=== PATIENT | female | born 1965 | race Caucasian/White ===

== ENCOUNTER 2019-04-03 23:03 | Emergency (ER) | payer OTHER ==
[2019-04-03] MEDS ORDERED: SODIUM CHLORIDE 0.9% 1,000 ML IV STA (23:45)
[2019-04-04 00:46] LABS: Basophils # (A) 0.1 k/uL (0-0.2); Basophils % (A) 0 %; Eosinophils # (A) 0.1 k/uL (0-0.7); Eosinophils % (A) 1 %; HCT 41.6 % (34.0-46.0); HGB 14.2 gm/dL (11.4-16.0); Lymphocytes % (A) 15 %; MCH 30.8 pg (25.0-35.0); MCV 90.4 fL (80.0-100.0); Mean Platelet Volume 6.6; Monocytes # (A) 0.6 k/uL (0-1.0); Monocytes % (A) 4 %; Neutrophils # (A) 10.6 k/uL (1.3-7.7); Neutrophils % (A) 79 %; Platelet Count 326 k/uL (150-450); RDW 13.2 % (11.5-15.5); WBC 13.4 k/uL (3.8-10.6)
[2019-04-04] MEDS ORDERED: KETOROLAC 30 MG/ML 1 ML VIAL IVP STA (00:53)
[2019-04-04] MEDS ORDERED: ONDANSETRON 4 MG/2 ML VIAL IVP STA (00:53)
[2019-04-04 00:55] LABS: Appearance,Urine Clear (Clear); Bacteria,Urine Rare /hpf; Bilirubin,Urine Negative (Negative); Blood,Urine Negative (Negative); Color,Urine Light Yellow; Glucose,Urine (UA) Negative (Negative); Ketones,Urine Negative (Negative); Leukocyte Esterase,Urine Small (Negative); Mucus,Urine Rare /hpf; Nitrite,Urine Negative (Negative); Protein,Urine Negative (Negative); RBC,Urine <1 /hpf (0-5); Specific Gravity,Urine 1.008 (1.001-1.035); Squamous Epithelial Cell,Urine 1 /hpf (0-4); Urobilinogen,Urine <2.0 mg/dL (<2.0); WBC,Urine 8 /hpf (0-5)
[2019-04-04 00:56] LABS: ALT 22 U/L (9-52); AST 26 U/L (14-36); African American GFR (CKD) >90 (>60 ml/min/1.73 sqM); Albumin 4.5 g/dL (3.5-5.0); Alkaline Phosphatase 93 U/L (38-126); Amylase 44 U/L (30-110); Anion Gap 9 mmol/L; Blood Urea Nitrogen 15 mg/dL (7-17); Carbon Dioxide 26 mmol/L (22-30); Chloride 103 mmol/L (98-107); Glucose 112 mg/dL (74-99); Lipase 34 U/L (23-300); Potassium 4.1 mmol/L (3.5-5.1); Sodium 138 mmol/L (137-145); Total Bilirubin 0.7 mg/dL (0.2-1.3); Total Protein 7.6 g/dL (6.3-8.2)
[2019-04-04 01:04] VITALS: RESP 18
--- NOTE | 2019-04-04 01:13 | CT ---
EXAM: CT Abdomen and Pelvis Without Intravenous Contrast CLINICAL HISTORY: Left lower quadrant abdominal pain TECHNIQUE: Axial computed tomography images of the abdomen and pelvis without intravenous contrast. DLP is 526.4 mGy-cm. This CT exam was performed using one or more of the following dose reduction techniques: automated exposure control, adjustment of the mA and/or kV according to patient size, and/or use of iterative reconstruction technique. Coronal and sagittal reconstructions are performed COMPARISON: No relevant prior studies available. FINDINGS: Lung bases: Unremarkable. No mass. No consolidation. ABDOMEN: Liver: Unremarkable. Gallbladder and bile ducts: Unremarkable. No calcified stones. No ductal dilation. Pancreas: Unremarkable. No ductal dilation. Spleen: Unremarkable. No splenomegaly. Adrenals: Unremarkable. No mass. Kidneys and ureters: Unremarkable. No obstructing stones. No hydronephrosis. Stomach and bowel: Short segment of proximal sigmoid has circumferential wall thickening, best seen on series 202 image 35 measuring up to 15 mm, surrounded by small amount of mesenteric inflammatory change. Moderate amount of stool in the proximal colon. Minimal colonic diverticulosis No obstruction. PELVIS: Appendix: No findings to suggest acute appendicitis. Bladder: Unremarkable. No stones. Reproductive: Unremarkable as visualized. ABDOMEN and PELVIS: Intraperitoneal space: Unremarkable. No free air. No significant fluid collection. Bones/joints: No acute fracture. No dislocation. Soft tissues: Unremarkable. Vasculature: Unremarkable. No abdominal aortic aneurysm. Lymph nodes: Unremarkable. No enlarged lymph nodes. IMPRESSION: Short segment of proximal sigmoid has circumferential wall thickening measuring up to 15 mm, surrounded by small amount of mesenteric inflammatory change, suggestive of colitis. No perforation or abscess. Followup resolution is recommended to rule out potential underlying neoplastic etiologies.
--- NOTE | 2019-04-04 01:48 | ED ---
Abdominal Pain HPI - General Chief Complaint: Abdominal Pain Stated Complaint: Abd Pain Time Seen by Provider: 04/03/19 23:15 Source: patient Mode of arrival: ambulatory Limitations: no limitations - History of Present Illness Initial Comments: 53-year-old female patient presents to the emergency department today for evaluation of vomiting and abdominal pain. Patient states that she developed vomiting 3 days ago. Patient states today she developed lower abdominal pain. Patient states the pain has been worsening throughout the day. Patient states that she continues to have dry heaves today. Denies any diarrhea or constipation. Denies any hematemesis, hematochezia, or melena. Denies any fever or chills. Patient has had colon resection in the past. Patient denies any recent rash, shortness breath, chest pain, back pain, numbness, tingling, dizziness, weakness, hematuria, dysuria, urinary urgency, urinary frequency, headache, visual changes, or any other complaints. - Related Data Home Medications Medication Instructions Recorded Confirmed Dextroamphetamine/Amphetamine 15 mg PO DAILY 04/03/19 04/03/19 [Adderall] Meloxicam 15 mg PO 04/03/19 Previous Rx's Medication Instructions Recorded Ketorolac [Toradol] 10 mg PO Q6HR #12 tab 04/04/19 Ondansetron [Zofran ODT] 4 mg PO Q8HR PRN #20 tab 04/04/19 Allergies Allergy/AdvReac Type Severity Reaction Status Date / Time No Known Allergies Allergy Verified 04/03/19 23:10 Review of Systems ROS Statement: Those systems with pertinent positive or pertinent negative responses have been documented in the HPI. ROS Other: All systems not noted in ROS Statement are negative. Past Medical History Additional Past Medical History / Comment(s): RA History of Any Multi-Drug Resistant Organisms: None Reported Past Surgical History: Appendectomy, Orthopedic Surgery, Tonsillectomy Past Psychological History: No Psychological Hx Reported Smoking Status: Never smoker Past Alcohol Use History: None Reported Past Drug Use History: None Reported General Exam Limitations: no limitations General appearance: alert, in no apparent distress, other (Physical well- developed well-nourished adult female patient in no acute distress. Vital signs upon presentation are temperature 98.4F, pulse 74, respirations 20, blood pressure 154/85, pulse ox 94% on room air.) Eye exam: Present: normal appearance, PERRL, EOMI. Absent: scleral icterus, conjunctival injection, periorbital swelling ENT exam: Present: normal exam, normal oropharynx, mucous membranes moist Respiratory exam: Present: normal lung sounds bilaterally. Absent: respiratory distress, wheezes, rales, rhonchi, stridor Cardiovascular Exam: Present: regular rate, normal rhythm, normal heart sounds. Absent: systolic murmur, diastolic murmur, rubs, gallop, clicks GI/Abdominal exam: Present: soft, tenderness (Lower abdominal tenderness), normal bowel sounds. Absent: distended, guarding, rebound, rigid Neurological exam: Present: alert, oriented X3, CN II-XII intact Psychiatric exam: Present: normal affect, normal mood Skin exam: Present: warm, dry, intact, normal color. Absent: rash Course Vital Signs 04/03/19 04/04/19 04/04/19 23:06 01:03 01:57 Temperature 98.4 F 97.4 F L Pulse Rate 74 60 61 Respiratory 20 18 18 Rate Blood Pressure 154/85 153/90 139/72 O2 Sat by Pulse 94 L 98 98 Oximetry Medical Decision Making - Medical Decision Making 53-year-old female patient presents to the emergency department today for evaluation of lower abdominal pain. Physical examination did reveal lower abdominal tenderness. Labs reviewed and did reveal elevated white blood cell count of 13. Remainder labs are unremarkable. CT abdomen and pelvis was obtained and did show evidence for proximal sigmoid colitis. I did discuss findings and results with the patient gradually discharged home with pain medication nausea medication. She is instructed to maintain clear liquid diet until symptoms are improved. She is instructed to follow-up with her primary care physician for recheck in 1-2 days. She is instructed to have reevaluation of the inflamed area to ensure resolution rule out neoplasm. Return parameters were discussed in detail. She verbalizes understanding and agrees with this plan. - Lab Data Result diagrams: 04/04/19 00:00 04/04/19 00:00 Lab Results 04/03/19 04/04/19 04/04/19 Range/Units 23:55 00:00 00:00 WBC 13.4 H (3.8-10.6) k/uL RBC 4.60 (3.80-5.40) m/uL Hgb 14.2 (11.4-16.0) gm/dL Hct 41.6 (34.0-46.0) % MCV 90.4 (80.0-100.0) fL MCH 30.8 (25.0-35.0) pg MCHC 34.0 (31.0-37.0) g/dL RDW 13.2 (11.5-15.5) % Plt Count 326 (150-450) k/uL Neutrophils % 79 % Lymphocytes % 15 % Monocytes % 4 % Eosinophils % 1 % Basophils % 0 % Neutrophils # 10.6 H (1.3-7.7) k/uL Lymphocytes # 2.0 (1.0-4.8) k/uL Monocytes # 0.6 (0-1.0) k/uL Eosinophils # 0.1 (0-0.7) k/uL Basophils # 0.1 (0-0.2) k/uL Sodium 138 (137-145) mmol/L Potassium 4.1 (3.5-5.1) mmol/L Chloride 103 (98-107) mmol/L Carbon Dioxide 26 (22-30) mmol/L Anion Gap 9 mmol/L BUN 15 (7-17) mg/dL Creatinine 0.67 (0.52-1.04) mg/dL Est GFR (CKD-EPI)AfAm >90 (>60 ml/min/1.73 sqM) Est GFR (CKD-EPI)NonAf >90 (>60 ml/min/1.73 sqM) Glucose 112 H (74-99) mg/dL Calcium 10.0 (8.4-10.2) mg/dL Total Bilirubin 0.7 (0.2-1.3) mg/dL AST 26 (14-36) U/L ALT 22 (9-52) U/L Alkaline Phosphatase 93 (38-126) U/L Total Protein 7.6 (6.3-8.2) g/dL Albumin 4.5 (3.5-5.0) g/dL Amylase 44 (30-110) U/L Lipase 34 (23-300) U/L Urine Color Light Yellow Urine Appearance Clear (Clear) Urine pH 6.0 (5.0-8.0) Ur Specific [place] 1.008 (1.001-1.035) Urine Protein Negative (Negative) Urine Glucose (UA) Negative (Negative) Urine Ketones Negative (Negative) Urine Blood Negative (Negative) Urine Nitrite Negative (Negative) Urine Bilirubin Negative (Negative) Urine Urobilinogen <2.0 (<2.0) mg/dL Ur Leukocyte Esterase Small H (Negative) Urine RBC <1 (0-5) /hpf Urine WBC 8 H (0-5) /hpf Ur Squamous Epith Cells 1 (0-4) /hpf Urine Bacteria Rare H (None) /hpf Urine Mucus Rare H (None) /hpf - Radiology Data Radiology results: report reviewed, image reviewed CT abdomen and pelvis without contrast was obtained. Report was reviewed in its entirety. Impression by Dr. Cespedes show short segment of proximal sigmoid has circumferential wall thickening measuring up to 15 mm, surrounded by small amount of mesenteric inflammatory change, suggestive of colitis. No perforation or abscess. Disposition Clinical Impression: Abdominal pain, Colitis Disposition: HOME SELF-CARE Condition: Good Instructions (If sedation given, give patient instructions): Abdominal Pain (ED), Colitis (ED) Additional Instructions: Start with clear liquid diet and advance as tolerated. Take nausea and pain medication as needed. Follow up with your primary care physician for recheck in 1-2 days. Have physician re-evaluate area of inflammation to ensure resolution. Return to the emergency department immediately for any new, worsening, or concerning symptoms. Prescriptions: Ketorolac [Toradol] 10 mg PO Q6HR #12 tab Ondansetron [Zofran ODT] 4 mg PO Q8HR PRN #20 tab PRN Reason: Nausea Is patient prescribed a controlled substance at d/c from ED?: No Referrals: Yovani Ko MD [Primary Care Provider] - 1-2 days Time of Disposition: 01:48
[2019-04-04 01:58] VITALS: BP 139/72; PULSE 61; TEMP 97.4
== END 2019-04-04 01:58 | disposition home or self-care (01) ==
LOC: EC 23:03
DX: K52.9 Noninfective gastroenteritis and colitis, unspecified (principal); Z79.899 Other long term (current) drug therapy; Z90.49 Acquired absence of other specified parts of digestive tract
CPT/HCPCS: 36415; 74176; 80053; 81001; 82150; 83690; 85025; 96361; 96374; 96375; 99284

== ENCOUNTER 2019-04-16 21:01 | Emergency (ER) | payer OTHER ==
[2019-04-16 21:33] VITALS: TEMP 98.2
[2019-04-16] MEDS ORDERED: SODIUM CHLORIDE 0.9% 1,000 ML IV STA (21:45)
[2019-04-16] MEDS ORDERED: MORPHINE SULFATE 4 MG/ML SYRINGE IV STA (21:45)
[2019-04-16] MEDS ORDERED: ONDANSETRON 4 MG/2 ML VIAL IVP STA (21:45)
--- NOTE | 2019-04-16 22:17 | ED ---
Abdominal Pain HPI - General Chief Complaint: Abdominal Pain Stated Complaint: Abd cramping, vomiting Time Seen by Provider: 04/16/19 21:45 Source: patient, RN notes reviewed, old records reviewed Mode of arrival: ambulatory Limitations: no limitations - History of Present Illness Initial Comments: This is a 33-year-old female the ER for evaluation of bowel pain to recent development ER visit was computed tomography scan pain maybe colitis or inflamma tory change in medication no help with symptoms. Patient swelling of bowel pain and cramping. No travel history no sick contacts mild nausea no vomiting no diarrhea patient is alert and [employer] weight loss. Patient did sleep primary care is not follow-up with GI or surgery. MD Complaint: abdominal pain -: week(s) Location: diffuse Radiation: none Migration to: no migration Severity: mild Quality: stabbing, aching Consistency: constant Improves With: nothing Worsens With: nothing Associated Symptoms: nausea, diarrhea - Related Data Home Medications Medication Instructions Recorded Confirmed Dextroamphetamine/Amphetamine 20 mg PO DAILY 04/16/19 04/16/19 [Adderall Xr] Meloxicam [Mobic] 15 mg PO DAILY 04/16/19 04/16/19 Allergies Allergy/AdvReac Type Severity Reaction Status Date / Time No Known Allergies Allergy Verified 04/16/19 22:03 Review of Systems ROS Statement: Those systems with pertinent positive or pertinent negative responses have been documented in the HPI. ROS Other: All systems not noted in ROS Statement are negative. Past Medical History Past Medical History: No Reported History Additional Past Medical History / Comment(s): RA History of Any Multi-Drug Resistant Organisms: None Reported Past Surgical History: Appendectomy, Orthopedic Surgery, Tonsillectomy Past Psychological History: ADD/ADHD Smoking Status: Never smoker Past Alcohol Use History: None Reported Past Drug Use History: None Reported General Exam Limitations: no limitations General appearance: alert, in no apparent distress Head exam: Present: atraumatic, normocephalic, normal inspection Eye exam: Present: normal appearance, PERRL, EOMI. Absent: scleral icterus, conjunctival injection, periorbital swelling ENT exam: Present: normal exam, mucous membranes moist Neck exam: Present: normal inspection. Absent: tenderness, meningismus, lymphadenopathy Respiratory exam: Present: normal lung sounds bilaterally. Absent: respiratory distress, wheezes, rales, rhonchi, stridor Cardiovascular Exam: Present: regular rate, normal rhythm, normal heart sounds. Absent: systolic murmur, diastolic murmur, rubs, gallop, clicks GI/Abdominal exam: Present: soft, normal bowel sounds. Absent: distended, tenderness, guarding, rebound, rigid Extremities exam: Present: normal inspection, full ROM, normal capillary refill. Absent: tenderness, pedal edema, joint swelling, calf tenderness Back exam: Present: normal inspection Neurological exam: Present: alert, oriented X3, CN II-XII intact Psychiatric exam: Present: normal affect, normal mood Skin exam: Present: warm, dry, intact, normal color. Absent: rash Course Vital Signs 04/16/19 21:30 Temperature 98.2 F Pulse Rate 89 Respiratory 18 Rate Blood Pressure 136/85 O2 Sat by Pulse 99 Oximetry - Reevaluation(s) Reevaluation #1: 04/16/19 22:37 Medical record is reviewed Reevaluation #2: 04/16/19 22:38 Patient stress Reevaluation #3: 04/16/19 22:38 Patient's refusing computed tomography scan Medical Decision Making - Medical Decision Making 53 female the ER with nonspecific abdominal pain, follow-up as an outpatient with GI or surgery per patient's primary care. Patient can be discharged home - Lab Data Result diagrams: 04/16/19 22:03 Lab Results 04/16/19 04/16/19 Range/Units 22:03 22:03 WBC 6.6 (3.8-10.6) k/uL RBC 4.19 (3.80-5.40) m/uL Hgb 12.8 (11.4-16.0) gm/dL Hct 37.6 (34.0-46.0) % MCV 89.7 (80.0-100.0) fL MCH 30.5 (25.0-35.0) pg MCHC 34.0 (31.0-37.0) g/dL RDW 13.2 (11.5-15.5) % Plt Count 277 (150-450) k/uL Neutrophils % 66 % Lymphocytes % 23 % Monocytes % 7 % Eosinophils % 1 % Basophils % 0 % Neutrophils # 4.4 (1.3-7.7) k/uL Lymphocytes # 1.5 (1.0-4.8) k/uL Monocytes # 0.5 (0-1.0) k/uL Eosinophils # 0.0 (0-0.7) k/uL Basophils # 0.0 (0-0.2) k/uL PT 10.1 (9.0-12.0) sec INR 0.9 (<1.2) APTT 26.1 (22.0-30.0) sec Disposition Clinical Impression: Abdominal pain Disposition: HOME SELF-CARE Condition: Good Instructions (If sedation given, give patient instructions): Abdominal Pain (ED) Is patient prescribed a controlled substance at d/c from ED?: No Referrals: Yovani Ko MD [Primary Care Provider] - 1-2 days
[2019-04-16 22:26] LABS: Basophils % (A) 0 %; Eosinophils % (A) 1 %; HCT 37.6 % (34.0-46.0); HGB 12.8 gm/dL (11.4-16.0); Lymphocytes # (A) 1.5 k/uL (1.0-4.8); Lymphocytes % (A) 23 %; MCH 30.5 pg (25.0-35.0); MCV 89.7 fL (80.0-100.0); Mean Platelet Volume 6.7; Monocytes # (A) 0.5 k/uL (0-1.0); Monocytes % (A) 7 %; Neutrophils # (A) 4.4 k/uL (1.3-7.7); Neutrophils % (A) 66 %; Platelet Count 277 k/uL (150-450); RBC 4.19 m/uL (3.80-5.40); RDW 13.2 % (11.5-15.5); WBC 6.6 k/uL (3.8-10.6)
[2019-04-16 22:34] LABS: INR 0.9 (<1.2); Partial Thromboplastin Time 26.1 sec (22.0-30.0); Prothrombin Time 10.1 sec (9.0-12.0)
[2019-04-16 22:38] LABS: ALT 22 U/L (9-52); AST 23 U/L (14-36); African American GFR (CKD) >90 (>60 ml/min/1.73 sqM); Albumin 3.8 g/dL (3.5-5.0); Alkaline Phosphatase 72 U/L (38-126); Amylase 30 U/L (30-110); Anion Gap 9 mmol/L; Blood Urea Nitrogen 9 mg/dL (7-17); Calcium 9.5 mg/dL (8.4-10.2); Carbon Dioxide 24 mmol/L (22-30); Chloride 104 mmol/L (98-107); Creatine Kinase 47 U/L (30-135); Glucose 101 mg/dL (74-99); Potassium 3.7 mmol/L (3.5-5.1); Sodium 137 mmol/L (137-145); Total Bilirubin 0.4 mg/dL (0.2-1.3); Total Protein 6.6 g/dL (6.3-8.2)
[2019-04-16 22:52] VITALS: BP 152/96; PULSE 83; RESP 12
== END 2019-04-16 22:45 | disposition home or self-care (01) ==
LOC: EC 21:01
DX: R10.9 Unspecified abdominal pain (principal); F90.9 Attention-deficit hyperactivity disorder, unspecified type; R11.0 Nausea; Z79.1 Long term (current) use of non-steroidal anti-inflammatories (NSAID); Z79.899 Other long term (current) drug therapy; Z53.20 Procedure and treatment not carried out because of patient's decision for unspecified reasons; Z90.89 Acquired absence of other organs
CPT/HCPCS: 36415; 80053; 82150; 82550; 83605; 83690; 85025; 85610; 85730; 96361; 99284

== ENCOUNTER 2019-05-08 10:31 | Day surgery (SDC) | payer OTHER ==
[2019-05-07 09:00] VITALS: BMI 25.0
[~2019-05-08 10:31] MED LIST: LACTATED RINGERS 1,000 ML IV SCH
[2019-05-08 10:55] VITALS: RESP 16; TEMP 97.8
[2019-05-08] MEDS ORDERED: LIDOCAINE 1% 20 ML VIAL (10MG/ML) FOR IV START INTRADERMA ONE (11:00)
[2019-05-08] MEDS ORDERED: PROPOFOL 10 MG/ML 20 ML VIAL IV ONE (11:48)
--- NOTE | 2019-05-08 12:15 | P.PCN ---
Date of Procedure: 05/08/19 Procedure(s) Performed: BRIEF HISTORY: Patient is a 54-year-old pleasant female, scheduled for an elective colonoscopy as a part of variation of severe lower abdominal pain and constipation. The patient was admitted to [facility] a week ago with severe left lower quadrant abdominal pain and diarrhea of 6 weeks duration. While she was in the hospital the diarrhea completely subsided and she was extremely constipated. She had an attempted colonoscopy just revealed large amount of stool in the sigmoid colon with surrounding superficial ulcerations consistent with ischemic colitis and the procedure could not be completed because of poor prep. The patient is scheduled for an outpatient colonoscopy today. She still continues to the benefit from quadrant abdominal pain and went to the emergency room 3 days ago. PROCEDURE PERFORMED: Colonoscopy biopsy. PREOPERATIVE DIAGNOSIS: Severe left lower quadrant abdominal pain and constipation. IV sedation per Anesthesia. PROCEDURE: After informed consent was obtained, the patient, was brought into the endoscopy unit. IV sedation was administered by Anesthesia under continuous monitoring. Digital rectal examination was normal. Initially the Olympus CF-160 flexible video colonoscope was then inserted in the rectum, gradually advanced into the cecum without any difficulty. Careful examination was performed as the scope was gradually being withdrawn. Ileocecal valve and the appendiceal orifice were visualized and appeared normal. Prep was extremely poor throughout the entire colon. Solid stool noted in several areas of ileus of the left colon visualized portions of the mucosa of the cecum, ascending colon, transverse co maxi appeared normal. Much of the mucosa could not be visualized because of solid stool.. In the descending colon there were superficial ulcerations identified adjacent to impacted stool consistent with ischemic colitis and biopsies were done from this area. Rest of the, descending colon, sigmoid colon, and rectum appeared normal. Retroflexion was performed in the rectum and no lesions were seen. The patient tolerated the procedure well. IMPRESSION: Poor prep involving the entire colon precluding adequate visualization. Superficial ulcerations noted in the descending colon adjacent to impacted stool suggestive of ischemic colitis. RECOMMENDATIONS: Findings of this examination were discussed with the patient as well as a family. He'll follow with the biopsy results. She was advised to start on MiraLAX 1 scoop twice daily fiber supplements daily. She'll be seen in office in 2 weeks..
[2019-05-08 12:35] VITALS: BP 143/90; PULSE 75
== END 2019-05-08 13:17 | disposition home or self-care (01) ==
LOC: ORWHC2ENDO 10:31
PROVIDERS: ATTEND Internal Medicine Gastroenterology
DX: K63.3 Ulcer of intestine (principal); Z79.899 Other long term (current) drug therapy; K59.00 Constipation, unspecified; Z79.891 Long term (current) use of opiate analgesic
CPT/HCPCS: 88305; 45378; J2704